=== PATIENT | male | born 2000 | race Two or more races ===

== ENCOUNTER 2025-04-20 14:31 | Emergency (ER) | payer OTHER, SELFPAY ==
[2025-04-20 14:55] VITALS: BP 143/85; PULSE 70; RESP 18; TEMP 37; O2SAT 99; BMI 27.3
--- NOTE | 2025-04-20 14:59 | XR_ITS ---
EXAMINATION: Right hand 2 views TECHNIQUE: AP lateral right hand 2 views Date and time: April 20, 2025, 1514 hours INDICATIONS: Injury to the hand today, hand pain. FINDINGS: No acute fracture No dislocation No foreign body IMPRESSION: No acute fracture
--- NOTE | 2025-04-20 16:03 | EDNOTE_ITS ---
Upper Extremity Injury RME/HPI General Chief Complaint: Hand/Wrist Problems Stated Complaint: CRUSHED R) HAND Time Seen by Provider: 04/20/25 14:37 Arrival date/time: 04/20/25 14:31 This is a case of 24-year-old male with no medical history came in in the emergency room due to right hand injury history of present illness started 1 hour prior to arrival in the emergency room patient was at work when a rock hit his right hand while working on the filed sustaining pain contusion and swelling no other injury noted Limitations: no limitations Related Data Previous Rx's ?Medication ?Instructions ?Recorded ibuprofen 800 mg tablet 800 mg PO Q8H PRN pain #20 t abs 04/20/25 Allergies Allergy/AdvReac Type Severity Reaction Status Date / Time No Known Allergies Allergy Verified 04/20/25 14:34 Review of Systems Review of Systems Systems Reviewed: All systems reviewed, normal except as documented Past Medical History Social History SMOKING STATUS: Never smoker ED Exam General Limitations: Present no limitations General appearance: Present alert, in no apparent distress and other (Patient is awake alert oriented not in distress nontoxic looking well-hydrated well nourished) Head Head exam: Present atraumatic, normocephalic and normal inspection Eye Eye exam: Present normal appearance, PERRL and EOMI ENT ENT exam: Present normal exam, normal oropharynx and mucous membranes moist Neck Neck exam: Present normal inspection, full ROM and trachea midline Chest Chest inspection: Present normal inspection and symmetric chest wall rise Respiratory Respiratory exam: Present normal lung sounds bilaterally Cardiovascular Cardiovascular exam: Present regular rate, normal rhythm and normal heart sounds Abdominal Exam Abdominal exam: Present soft and normal bowel sounds Extremities Exam Extremities exam: Present normal inspection and full ROM Expanded Upper Extremity Exam Forearm/Wrist exam: Present normal inspection and full ROM; Absent tenderness or swelling Hand exam: Present tenderness, swelling and other (moderate tenderness on pa lpation on the dorsal aspect of the right hand with contusion no hematoma no crepitation no deformity mild redness but no cellulitis or abscess no signs and symptoms of infection no snuffbox tenderness ROM is intact but with pain pulses were full and equal capillary refill l); Absent abrasion, laceration, skin avulsion, ecchymosis, deformity, crepitus, dislocation, erythema, amputation, nail avulsion or subungual hematoma Back Exam Back exam: Present normal inspection and full ROM Neurological Exam Neurological exam: Present alert, oriented X3, CN II-XII intact, normal gait and reflexes normal; Absent motor sensory deficit Psychiatric Psychiatric exam: Present normal affect and normal mood Skin Skin exam: Present warm, dry, intact, normal color and other (right hand contusion) Course Quality Measures none Orders Category Date Time Status Splint / Immobilizer STAT Care 04/20/25 16:00 Active XR hand RT 2V Stat Exams 04/20/25 14:59 Completed Vital Signs Vital signs: Vital Signs Temperature 98.6 F 04/20/25 14:55 Pulse Rate 70 04/20/25 14:55 Respiratory Rate 18 04/20/25 14:55 Blood Pressure 143/85 H 04/20/25 14:55 Pulse Oximetry (%) 99 04/20/25 14:55 Oxygen Delivery Method Room Air 04/20/25 14:55 Oxygen saturation is 99% on room air Extremity Injury MDM Narrative MDM Narrative:: This is a case of 24-year-old male with no medical history came in in the emergency room due to right hand injury history of present illness started 1 hour prior to arrival in the emergency room patient was at work when a rock hit his right hand while working on the filed sustaining pain contusion and swelling no other injury noted physical examination patient is awake alert oriented not in distress nontoxic looking well-hydrated well-nourished BP stable not tachycardic not tachypneic afebrile nonhypoxic patient is awake alert oriented not in distress nontoxic looking This is a case of 24-year-old male with no medical history came in in the emergency room due to right hand injury history of present illness started 1 hour prior to arrival in the emergency room patient was at work when a rock hit his right hand while working on the filed sustaining pain contusion and swelling no other injury moderate tenderness on palpation on the dorsal aspect of the right hand with contusion no hematoma no crepitation no deformity mild redness but no cellulitis or abscess no signs and symptoms of infection no snuffbox tenderness ROM is intact but with pain pulses were full and equal capillary refill less than 2 seconds sensory is intact nail is intact x-ray no fracture no dislocation Rojelio bandage was applied to the right hand patient tolerated well neurovascular intact RICE treatment to continue by the patient at home ibuprofen was prescribed patient will follow-up with PCP in 2 days for reevaluation and for any worsening symptoms or any emergent concern return precaution in the ER is advsied Patient was discharged with comfortable condition walking with stable gait. Patient verbalized no further complains explained diagnosis and answered patient question. Patient is comfortable with the proposed management plan including the need to follow up with his/her primary care physician and any specialist if applicable Discussed patient for any urgent condition or worsening sx, He/She needed to go to emergency room immediately or call 911. Patient acknowledge the responsibility to follow up as instructed and to monitor her/his symptoms. For any persistence of the symptoms for more than 3-5 days return precaution advised. Discussed the result of the test and was given printed discharge instruction Patient data External records reviewed:: [facility] previous records Clinical information provided by:: patient Social determinants that could affect healthcare access:: none Patient has the following chronic illnesses:: None How is presenting disease/condition affected by chronic disease/condition?: no chronic disease Evaluation data The following diagnostics were reviewed and interpreted by me:: radiology exam(s) Lab and/or radiology exams considered but not ordered:: Reviewed Interpretation Summary: Reviewed Medications / Prescriptions Medications or Prescriptions considered but not ordered:: Given Medication administrations:: Give Consultations Consultation(s) initiated? (list below): No Diagnosis Upper Extremity Injury Differential Diagnosis: sprain and strain of wrist and fracture of hand Most likely diagnosis given after review of the tests above:: Hand contusion hand sprain Admission Indicated Admission indicated?: not indicated Explain why admission is indicated or not indicated:: not indicated Admission Request Was there a request for admission?: No Admission Attestation Admission request attestation: not indicated Disposition Plan Disposition Plan: Discharge Discharge Attestation Discharge Attestation: The patient and all family members were given an opportunity to ask questions and understood the discharge instructions. Discharge instructions specifically effects, indications for sooner follow up or return to the emergency department, and the expected course of current diagnosis. Patient condition: Stable Discharge Plan Plan Patient Disposition: HOME (Self Care) Patient condition on transfer: Stable Prescriptions/Referrals Prescriptions/Med Rec: New ibuprofen 800 mg tablet 800 mg PO Q8H PRN (Reason: pain) Qty: 20 0RF Referrals: No Primary/Family,Physician [Primary Care Provider] - In 1 week Problem List Clinical Impression: Contusion of hand, Hand sprain Patient/Caregiver Discharge Instructions Education Materials: ED ROJELIO Wrap, ED Hand Contusion, ED Hand Sprain, ED RICE Additional Instructions: Follow-up with your primary care physician in 2 days for reevaluation worsening symptoms or any emergent concern call 911 or go to the nearest emergency room take your medication as directed ice pack every 2 hours for 30 minutes for 24 hours then alternate with warm compresses advised elevate to decrease swelling keep the Rojelio bandage in place until cleared by primary care for physician Print Language: Indonesian Stand Alone Forms: Day Award Info., Patient Portal Info Letter PA/PEOPLESOFT ADMINISTRATOR Supervising Physician PA/PEOPLESOFT ADMINISTRATOR Supervising Physician: dr jiang
[2025-04-20 17:21] LABS: Amphetamine/Methamp Scrn,U Negative (Negative); Barbiturate Screen,Urine Negative (Negative); Benzodiazepines Screen,Urine Negative (Negative); Benzoylecgonine Screen, Ur Negative (Negative); Fentanyl Screen,Urine Negative (Negative); Opiate Screen,Urine Negative (Negative); THC Screen,Urine Negative (Negative)
== END 2025-04-20 16:48 | disposition home or self-care (01) ==
PROVIDERS: Nurse Practitioner Family; Emergency Provider Family Medicine
DX: S63.91XA Sprain of unspecified part of right wrist and hand, initial encounter (principal); W22.09XA Striking against other stationary object, initial encounter; Y99.0 Civilian activity done for income or pay
CPT/HCPCS: 73120; 80307; 99282